=== PATIENT | male | born 1950 | race Caucasian/White ===

== ENCOUNTER 2023-04-16 18:26 | Emergency (ER) | payer OTHER, MEDICAID, SELFPAY ==
--- NOTE | ~2023-04-16 | XR_ITS ---
EXAMINATION: XR KNEE, RIGHT CLINICAL INFORMATION: Reason for Exam pain and swelling COMPARISON: None TECHNIQUE: 4 views of the knee FINDINGS: No acute fracture or dislocation. Quadriceps tendon enthesopathy. Small suprapatellar joint effusion. Soft tissues are unremarkable. XR/XR knee RT 3V IMPRESSION: * No acute osseous abnormality. * Mild degenerative changes of the knee. Small suprapatellar joint effusion.
[2023-04-16 18:29] VITALS: BP 155/85; PULSE 64; RESP 20; TEMP 36.1; O2SAT 98; BMI 27.5
--- NOTE | 2023-04-16 18:30 | ED_ITS ---
HPI - General Adult General Chief complaint: Extremity Injury, Lower Stated complaint: rt knee pain Time Seen by Provider: 04/16/23 19:34 Source: patient and family Mode of arrival: ambulatory Limitations: language barrier (Romanian-speaking [employer] officer utilized) History of Present Illness HPI narrative: Patient is a 72-year-old male presents emergency department for evaluation of traumatic right knee pain. He states yesterday he was bowling and he sustained a twisting injury to the knee. He has pain just below the knee in to the lateral aspect. Denies any fall. Denies numbness tingling or cold sensation to the lower extremity. He reports a prior history of meniscus injury approximately 4 years ago. He was evaluated in [place] for this and was recommended to consider either surgery or conservative treatment. He opted for conservative treatment and has not had any continued issues or persistent pain with this. Related Data Allergies Allergy/AdvReac Type Severity Reaction Status Date / Time No Known Allergies Allergy Verified 04/16/23 18:37 Review of Systems Review of Systems: Yes all other systems are reviewed and are negative [facility] Past Medical History Attestation statement: The following information was validated with the patient. Source: old records reviewed Social History Smoked in Last 30 Days: No Use of substances other than those prescribed or required for medical reasons: No Advance Directives: No Advance Directives Information Provided: No Physical Exam ED Vital Signs: Vital Signs - 24 hr 04/16/23 18:29 04/16/23 21:21 Temperature 97.0 F 97.6 F Pulse Rate 64 66 Respiratory Rate 20 16 Blood Pressure 155/85 H 150/82 H Pulse Oximetry 98 95 Oxygen Delivery Method Room Air Room Air BMI result Body Mass Index 27.5 Appearance: Alert.?Oriented to person, place and time. No acute distress.?Normal affect. Eyes: Pupils equal, round and reactive to light.? ENT: Pharynx normal.?? Neck: Normal inspection.? Neck supple.?? CVS: Heart sounds normal. Normal heart rate and rhythm.? Pulses normal.?? Respiratory: No respiratory distress.? Lung sounds clear to auscultation bilaterally?? Abdomen: Soft and non-tender. Normoactive bowel sounds. Skin: Skin warm and dry.? Normal skin color.? Extremities: No lower extremity edema.? No calf ttp?right knee without laxity upon examination. Anterior and posterior drawer test negative. Positive Rylan's test. 2+ DP/PT pulse bilaterally. No significant effusion.. Neuro: Moves all extremities spontaneously. Sensation intact bilaterally. Ambulates with normal steady gait. Course Course Course Narrative: This is a rapid medical exam: Additional HPI, ROS, PE not included below will be deferred to primary provider. Patient is a 72-year-old Romanian speaking male presenting to the emergency department with complaint of right knee pain which he rates at 10/10. States that last night he was doing an activity and developed right knee pain. States he felt as though his knee was dislocated. Patient ambulated into triage without difficulty. Reports prior history of meniscus injury in [place]. Patient arrives with compression sleeve to right knee. Plan: x-ray Medical Decision Making Medical Decision Making MDM Narrative: Patient is a 72-year-old male presents emergency department for evaluation of traumatic right knee pain as per HPI. Physical examination concerning for possible meniscus injury especially given history of prior. His extremities neurovascularly intact distally. Knee is not erythematous, warm to touch, nor is there any rash lesion, not consistent with septic joint/cellulitis. XR imaging was obtained which reveals no evidence of acute fracture dislocation, he does have mild degenerative changes. With these findings with patient. Use Brennan bandage for compression, ambulatory with a steady gait. Discussed outpatient follow-up with primary care provider,/referral for Orthopedics should symptoms not resolve. He verbalized understanding. Stable for discharge. Differential Diagnosis Differential Diagnoses: The differential diagnosis associated with the presentation includes (Fracture, dislocation, sprain, meniscus injury, arthritis) Independent Interpretation I performed an independent interpretation of an: Plain X-Ray (A personally interpreted XR imaging and agree with radiologist impression.) Radiology Impression Discussion of test interpretation with radiology: I have reviewed the radiologist's reading. Radiologist Impression: XR/XR knee RT 3V IMPRESSION: * No acute osseous abnormality. * Mild degenerative changes of the knee. Small suprapatellar joint effusion. Independent Historian Clinical information obtained from an independent historian. History obtained from or confirmed by: Other (Son present at bedside who confirms history) Prescription Management I considered prescription management with: Pain Medication (Acetaminophen) Discharge Plan Discharge Clinical Impression: Knee sprain Patient Disposition: Home, Self-Care Instructions: Knee Sprain (ED), How to Use an Elastic Bandage (ED), R.I.C.E. Treatment (ED) Additional Instructions: You can take addition to Tylenol 500 mg, 2 tablets (1,000mg) every 4-6 hours as needed for pain, but not to exceed 3 doses daily (3,000mg).? Be sure to rest, apply ice, use Brennan bandage for compression elevate leg as instructed. Please follow-up with your primary care provider for any persistent symptoms. I have also provided you the contact information for the orthopedic office should you symptoms not improved. Referrals: Nickolas Kraft MD [Physician] - Interventions: ED Discharge Assessment Last Done: 04/16/23 21:43 Discharge Date/Time: 04/16/23 21:44
[2023-04-16 21:21] VITALS: BP 150/82; PULSE 66; RESP 16; TEMP 36.4; O2SAT 95
--- NOTE | 2023-04-16 21:21 | MHC.EDTECH ---
Brennan wrap applied to right knee, patient able to ambulate slowly with minor redirection. VSS
== END 2023-04-16 21:44 | disposition home or self-care (01) ==
PROVIDERS: Emergency Provider Internal Medicine
DX: S83.91XA Sprain of unspecified site of right knee, initial encounter (principal); X50.1XXA Overexertion from prolonged static or awkward postures, initial encounter; Y93.54 Activity, bowling; Y92.39 Other specified sports and athletic area as the place of occurrence of the external cause; Y99.9 Unspecified external cause status
CPT/HCPCS: 73562; 99283; 99284